=== PATIENT | female | born 1975 | race Caucasian/White ===

== ENCOUNTER → 2023-07-09 06:32 | Day surgery (SDC) | payer BC, SELFPAY | LOC: GI 06:32 | PROVIDERS: ATTENDING PHYSICIAN Internal Medicine Gastroenterology; FAMILY PHYSICIAN Student in an Organized Health Care Education/Training Program | DX: K51.30 Ulcerative (chronic) rectosigmoiditis without complications (principal); K59.39 Other megacolon; K64.8 Other hemorrhoids | CPT/HCPCS: 45380; 88305 ==